=== PATIENT | female | born 1945 | race Caucasian/White ===

== ENCOUNTER → 2018-03-15 | Outpatient (CLI) | payer MEDICARE, OTHER | END | disposition home or self-care (01) | LOC: KCIC 13:23 | DX: S80.02XA Contusion of left knee, initial encounter (principal); W19.XXXA Unspecified fall, initial encounter; Y93.89 Activity, other specified; Y92.89 Other specified places as the place of occurrence of the external cause; Y99.8 Other external cause status | CPT/HCPCS: 73564 ==

== ENCOUNTER → 2019-06-25 | Outpatient (CLI) | payer MEDICARE ==
--- NOTE | 2019-06-25 15:52 | KCIC ---
EXAM: Lumbar spine, 5 views. HISTORY: Pain. COMPARISON: None. FINDINGS: 5 views of the lumbar spine are obtained. There is lumbar levoscoliosis centered at L2-L3. There is compensatory dextroscoliosis at L4-L5. There is degenerative endplate remodeling with disc space narrowing and osteophytosis primarily along the right aspect of L2-L3 and left aspect of L4-L5. This corresponds with the levels of maximum scoliotic curvature. There is mild retrolisthesis of L2 on L3 and L4 and L5 and minimal retrolisthesis of L3 on L4. There is grade 1 anterolisthesis of T11 on T12, T12 on L1 and L1 on L2. There is also grade 1 anterolisthesis of L5 on S1. There is advanced facet arthropathy predominantly at the lumbosacral junction. IMPRESSION: 1. Multilevel degenerative change involving the lumbar spine, described in detail above. 2. S-shaped lumbar scoliosis and multilevel listhesis, also described above. Electronically signed by: Shirley Hurst MD (06/25/2019 3:49 PM) [place] [id number]
== END | disposition home or self-care (01) ==
LOC: KCIC 13:09
PROVIDERS: ATTEND Family Medicine
DX: M47.816 Spondylosis without myelopathy or radiculopathy, lumbar region (principal); M41.86 Other forms of scoliosis, lumbar region; M48.061 Spinal stenosis, lumbar region without neurogenic claudication; M25.78 Osteophyte, vertebrae; M53.86 Other specified dorsopathies, lumbar region; M46.87 Other specified inflammatory spondylopathies, lumbosacral region; G89.29 Other chronic pain
CPT/HCPCS: 72110